=== PATIENT | female | born 1955 | race Caucasian/White ===

== ENCOUNTER 2017-03-08 10:27 | Emergency (ER) | payer MEDICAID ==
[~2017-03-08] VITALS: Ht 165.1 cm; Wt 83.0 kg
[2017-03-08 10:29] VITALS: Ht 165.1 cm; Wt 83.0 kg
[2017-03-08] MEDS ORDERED: IBUPROFEN 600 MG TAB PO ONE (11:00)
[2017-03-08] MEDS ORDERED: IBUP-1542 PO (11:19)
[2017-03-08] MEDS ORDERED: AMO500 PO (11:20)
--- NOTE | 2017-03-08 11:25 | ERD ---
ER Documentation Chief Complaint Date/Time DATE: 03/08/17 TIME: 11:23 Chief Complaint dental pain HPI 61-year-old female with no significant past medical history presents to the ED complaining of right lower mandibular tooth pain that started 3 days ago. Reports that the pain radiates to her right temporal region and throat. Reports that pain is worse when she chews with her right side of the teeth. Denies any fever, chills, dysphagia, odynophagia, dysphagia, nausea, vomiting, chest pain, shortness of breath, wheezing. Denies any headache, weakness, numbness or tingling. Denies any trauma or injuries. ROS All systems reviewed and are negative except as per history of present illness. Medications Home Meds Active Scripts Amoxicillin* (Amoxicillin*) 500 Mg Cap, 500 MG PO TID for 7 Days, CAP Prov:JAVON PAPPAS PA-C 03/08/17 Ibuprofen* (Motrin*) 600 Mg Tab, 600 MG PO Q6, #30 TAB con comida Prov:JAVON PAPPAS PA-C 03/08/17 Allergies Allergies: Coded Allergies: No Known Allergy (Verified Allergy, Mild, 05/24/09) PMhx/Soc Medical and Surgical Hx: pt denies Medical Hx, pt denies Surgical Hx Physical Exam Vitals Vital Signs Date Time Temp Pulse Resp B/P Pulse Ox O2 Delivery O2 Flow Rate FiO2 03/08/17 10:29 98.6 93 19 146/90 98 Physical Exam Const: [id number], well-nourished. In no acute distress. Head: Atraumatic, normocephalic Eyes: Normal Conjunctiva without injection. No purulent discharge. PERRL. EOMI ENT: Normal external ear. Ear canal without erythema. Tympanic membrane pearly judd without effusion or bulging. Nasal canal clear with normal turbinates. Moist oropharynx without tonsillar exudates. Tenderness to palpation of the right lower mandibular first molar. No fluctuance or induration. Slightly erythema surrounding the right first mandibular molar. Non-erythematous pharynx. Uvula midline. No drooling. No trismus. Neck: Full range of motion. No meningismus. No cervical lymphadenopathy. Resp: Clear to auscultation bilaterally. No wheezing, rhonchi, rales, or crackles. No accessory muscle use. No retractions. Cardio: Regular rate and rhythm. No murmurs, rubs or gallops. Abd: Soft, non tender, non distended. Normal bowel sounds. No palpable masses. No rebound tenderness. No guarding. Skin: No petechiae or rashes Back: No midline tenderness. No CVA tenderness. Ext: No cyanosis, or edema. Neur: Awake and alert. Psych: Normal Mood and Affect Results 24 hrs Current Medications Medications (Trade) Dose Ordered Sig/James Route PRN Reason Start Time Stop Time Status Last Admin Dose Admin Ibuprofen (Motrin) 600 mg ONCE ONCE PO 03/08/17 11:00 03/08/17 11:01 DC 03/08/17 11:03 Procedures/MDM This is a 61-year-old female with no significant past medical history presents the ED complaining of a right sided tooth ache. Patient is afebrile and nontoxic-appearing. Patient has normal vital signs. Patient does have tenderness palpation of the right first mandibular molar. Pain is likely derived from dental origin. Patient was treated here in the ED with ibuprofen with improvement of her pain. Patient is appropriate for outpatient management with a dentist. Low suspicion for dental abscess, retropharyngeal abscess, pneumonia, Juan R's angina, peritonsillar abscess, strep pharyngitis, or other emergent conditions. Discharge medications: Amoxicillin, Ibuprofen Follow up with primary care physician in 1-2 days. Instructed patient to return to the ED sooner for any worsening symptoms. Patient's questions were answered. Patient understood and agreed with discharge plan. Patient discharged stable. Departure Diagnosis: Primary Impression: Toothache Condition: Stable Patient Instructions: Dental Pain Ref[facility]: [facility] se lewis hecho un examen mdico de control que le indica que no est en lenny condicin que requiera tratamiento urgente en el Departamento de Emergencia. Un estudio ms profundo y el tratamiento de garvin condicin pueden esperar sin ningn riesgo hasta que usted sea atendida/o en el consultorio de garvin mdico o lenny cl jasper. Es responsabilidad suya arreglar lenny nela para el seguimiento del feli. MANEJO DE CONDICIONES NO URGENTES EN EL FUTURO 1) Si usted tiene un mdico de atencin primaria: Usted debera llamar a garvin mdico de atencin primaria antes de venir al departamento de emergencia. Despus de las horas de consultorio, garvin doctor o garvin asociado/a est disponible por telfono. El mdico o enfermero de alma en el servicio telefnico puede asesorarle por jennie medio para atender el problema, o feli contrario se puede programar lenny nela. 2) Si usted no tiene un mdico de atencin primaria: Llame al mdico o clnica de referencia que aparece abajo bushra las horas de consultorio para hacer lenny nela para que le vean. CLINICAS: [facility] [phone] [facility] [phone] [address] [facility] [phone] [facility]. [facility] [phone] [facility]. [facility] [phone] [address] [facility]. [phone] [address] [facility]. [facility] () Anant se lewis hecho un examen mdico de control que le indica que no est en lenny condicin que requiera tratamiento urgente en el Departamento de Emergencia. Un estudio ms profundo y el tratamiento de garvin condicin pueden esperar sin ningn riesgo hasta que usted sea atendida/o en el consultorio de garvin mdico o lenny cl jasper. Es responsabilidad suya arreglar lenny nela para el seguimiento del feli. MANEJO DE CONDICIONES NO URGENTES EN EL FUTURO 1) Si usted tiene un mdico de atencin primaria: Usted debera llamar a garvin mdico de atencin primaria antes de venir al departamento de emergencia. Despus de las horas de consultorio, garvin doctor o garvin asociado/a est disponible por telfono. El mdico o enfermero de alma en el servicio telefnico puede asesorarle por jennie medio para atender el problema, o feli contrario se puede programar lenny nela. 2) Si usted no tiene un mdico de atencin primaria: Llame al mdico o condado institucions de referencia que aparece abajo bushra las horas de consultorio para hacer lenny nela para que le vean. SI USTED NO PUEDE PAGAR PARA JAY UN MEDICO puede ir a: [facility] [address] [place] [address] [facility] [address] [place] [address] [facility] [address] [place] [address] [facility] [address] [place] [address] [facility] D[facility] ([facility] walk in clinic) Additional Instructions: Visite a garvin dentista maana para un EXAMEN.Regrese a estas instalaciones si no se mejora sam esperbamos o sam le dijimos. JAVON PAPPAS PA-C Mar 08, 2017 11:25
== END 2017-03-08 11:36 | disposition home or self-care (01) ==
LOC: FTE 10:27
DX: K08.89 Other specified disorders of teeth and supporting structures (principal)
CPT/HCPCS: 99283

== ENCOUNTER 2017-05-27 10:12 | Emergency (ER) | payer SELFPAY ==
[~2017-05-27] VITALS: Ht 162.6 cm; Wt 91.0 kg
[~2017-05-27 10:12] MED LIST: AMO500 PO; IBUP-1542 PO
[2017-05-27 10:16] VITALS: Ht 162.6 cm; Wt 91.0 kg
[2017-05-27] MEDS ORDERED: IBUP-1542 PO (10:47)
[2017-05-27] MEDS ORDERED: AMO500 PO (10:47)
[2017-05-27] MEDS ORDERED: IBUPROFEN 600 MG TAB PO ONE (11:00)
--- NOTE | 2017-05-27 11:32 | ERD ---
ER Documentation Chief Complaint Date/Time DATE: 05/27/17 TIME: 11:20 Chief Complaint right gum swelling HPI 61-year-old female complaining of right-sided gum pain and facial swelling 2 days. Patient stated that she does not have any teeth remaining on that side. Denies fever or chills. Denies sore throat. Denies shortness of breath. ROS All systems reviewed and are negative except as per history of present illness. Medications Home Meds Active Scripts Amoxicillin* (Amoxicillin*) 500 Mg Cap, 500 MG PO TID for 7 Days, CAP Prov:SANTIAGO SCHMITZ. SHIPPING/RECEIVING CLERK 05/27/17 Ibuprofen* (Motrin*) 600 Mg Tab, 600 MG PO Q6H Y for PAIN AND OR ELEVATED TEMP, #30 TAB Prov:SANTIAGO SCHMITZ. SHIPPING/RECEIVING CLERK 05/27/17 Amoxicillin* (Amoxicillin*) 500 Mg Cap, 500 MG PO TID for 7 Days, CAP Prov:JAVON PAPPAS PA-C 03/08/17 Ibuprofen* (Motrin*) 600 Mg Tab, 600 MG PO Q6, #30 TAB con comida Prov:JAVON PAPPAS PA-C 03/08/17 Allergies Allergies: Coded Allergies: No Known Allergy (Verified Allergy, Mild, 05/24/09) PMhx/Soc History of Surgery: Yes (SPINE SURGERY ) Anesthesia Reaction: No Hx Alcohol Use: No Hx Substance Use: No Hx Tobacco Use: No Smoking Status: Never smoker Physical Exam Vitals Vital Signs Date Time Temp Pulse Resp B/P Pulse Ox O2 Delivery O2 Flow Rate FiO2 05/27/17 10:16 98.1 98 18 142/74 99 Physical Exam General: Well-developed, well-nourished, conscious and coherent, in no distress Skin: Warm and dry without rash, good texture and turgor Head: Normocephalic without evidence of trauma Eyes: Sclera and conjunctivae normal; pupils equal, round, and reactive to light; extraocular movements are intact Mouth/throat: Mucous membranes are moist. Posterior pharynx clear without erythema or exudates. Multiple teeth missing. Right lower gum erythematous and tender. Right side facial swelling and induration without fluctuance Neck: Supple without meningismus or adenopathy. Carotids are equal. Trachea midline. No bruits or JVD Chest: Normal AP diameter. Good expansion without retractions. Nontender. Lungs are clear to auscultate bilaterally with good tidal volume Heart: Regular rate and rhythm. No murmur, rub, or gallops heard Extremities: Full range of motion. Good strength bilaterally. No clubbing, cyanosis, or edema. Peripheral pulses are intact. Sensation intact Neuro: Alert and oriented 4, GCS 15. Cranial nerves grossly intact. Motor and sensory exams nonfocal. Moves all extremities. Speech clear. Gait normal Results 24 hrs Current Medications Medications (Trade) Dose Ordered Sig/James Route PRN Reason Start Time Stop Time Status Last Admin Dose Admin Ibuprofen (Motrin) 600 mg ONCE ONCE PO 05/27/17 11:00 05/27/17 11:01 DC 05/27/17 11:02 Procedures/MDM Well-appearing 61-year-old female presented ED with facial cellulitis, likely secondary to dental infection. No sign of necrotizing fasciitis. I doubt Juan R's angina, peritonsillar or retropharyngeal abscess. Patient advised to follow-up with a dentist tomorrow. Referral to [place] [facility] given to the patient. Patient appears well, stable for discharge and outpatient management. Medical decision making shared with patient and family. Education provided to patient and family. Patient and family expressed understanding of the plan. Medications on discharge: Ibuprofen, amoxicillin. Follow-up: Dentist tomorrow Departure Diagnosis: Primary Impression: Dental infection Additional Impression: Facial cellulitis Condition: Good Patient Instructions: Cellulitis, Facial Referrals: [facility] ([facility] walk in clinic) Additional Instructions: Specialist:Usted tiene lenny condicin mdica que requiere que daiana a un dentista dentro de los prximos 1-2 ventura. SANTIAGO SCHMITZ NP May 27, 2017 11:31
== END 2017-05-27 11:22 | disposition home or self-care (01) ==
LOC: FTE 10:12
DX: K04.7 Periapical abscess without sinus (principal); L03.211 Cellulitis of face; R40.2412 Glasgow coma scale score 13-15, at arrival to emergency department
CPT/HCPCS: 99283